=== PATIENT | male | born 1945 | race Caucasian/White ===

== ENCOUNTER 2016-04-06 00:37 | Emergency (ER) | payer MEDICARE ==
--- NOTE | 2016-04-06 00:51 | Emergency Department Record ---
History of Present Illness - General Chief complaint: Throat foreign body Stated complaint: THINKS HE SWALLOWED A COIN Time Seen by Provider: 04/06/16 00:46 Source: Patient, Family Mode of Arrival: Ambulatory Limitations: No limitations - History of Present Illness Initial comments: 70 yo male presents with a concern that he might have swallowed a coin. He had placed his night time pills in his pocket. He reached grabbed them and took them without looking. He thinks he had a single coin in the pocket with the pills. No chocking or gagging. No voice changes. He has a vague sensation in the lower throat/neck area. He has been able to swallow without difficulty. His PCP is Dr Combs, This occurred at midnight. He take 5 pills at night and swallows then all at once. MD complaint: Foreign body Onset/Timin -: Minutes(s) Severity: Mild Consistency: Constant Improves with: None Worsens with: None Context-Epistaxis: Other (as above) Associated Symptoms: Other - Related Data Home Medications Medication Instructions Recorded Confirmed Last Taken Fentanyl [Duragesic] 25 mcg TD Q72H 04/06/16 04/06/16 04/05/16 Hydrocodone/Acetaminophen [[place] 3 tab PO Q8H PRN 04/06/16 04/06/16 04/05/16 5mg/325mg] Nebivolol HCl [Bystolic] 5 mg PO DAILY 04/06/16 04/06/16 04/05/16 [place]-3 Fatty Acids/Fish Oil [Fish 1 each PO DAILY 04/06/16 04/06/16 04/05/16 Oil 1,000 mg Softgel] Omeprazole Magnesium [Prilosec Otc] 20 mg PO DAILY 04/06/16 04/06/16 04/05/16 Tizanidine HCl [Zanaflex] 2 mg PO QHS 04/06/16 04/06/16 04/05/16 Allergies Allergy/AdvReac Type Severity Reaction Status Date / Time No Known Drug Intolerances Allergy Unknown none Verified 04/06/16 00:45 Travel Screening - Travel/Exposure Within Last 30 Days Have you traveled within the last 30 days?: No - Travel/Exposure Within Last Year Have you traveled outside the [place] in the last year?: No - Additonal Travel Details Have you been exposed to anyone with a communicable illness?: No - Travel Symptoms Symptom Screening: None Review of Systems Constitutional: Denies: Chills, Fever, Malaise, Weakness Eyes: Denies: Eye discharge ENT: Denies: Congestion, Throat pain Respiratory: Denies: Cough Cardiovascular: Denies: Chest pain, Palpitations, Syncope Endocrine: Denies: Fatigue Gastrointestinal: Denies: Abdominal pain, Diarrhea, Nausea, Vomiting Genitourinary: Denies: Dysuria, Frequency Musculoskeletal: Denies: Arthralgia, Back pain, Myalgia Skin: Denies: Bruising, Change in color, Rash Neurological: Denies: Headache Psychiatric: Denies: Anxiety Hematological/Lymphatic: Denies: Easy bleeding, Easy bruising, Swollen glands Past Medical History - SOCIAL HISTORY Smoking Status: Former smoker Alcohol Use: None Drug Use: None - RESPIRATORY Hx Respiratory Disorders: Yes Hx COPD: Yes Hx Pneumonia: Yes (20 yrs ago) - CARDIOVASCULAR Hx Cardio Disorders: Yes Hx Cardiac Cath: Yes Hx Hypertension: Yes (meds good control) - NEURO Hx Neuro Disorders: No - GI Hx GI Disorders: Yes Hx Reflux: Yes (omeprazole) - Hx Genitourinary Disorders: No - ENDOCRINE Hx Endocrine Disorders: No - MUSCULOSKELETAL Hx Musculoskeletal Disorders: Yes - PSYCH Hx Psych Problems: No - HEMATOLOGY/ONCOLOGY Hx Hematology/Oncology Disorders: No Family Medical History Any Significant Family History?: No Hx Alcohol Use: Children *Alcohol Comment: daughter Hx Cancer: Father *Cancer Comment: lung Hx HTN: Mother Hx Resp Disorders: Father Physical Exam - General General Appearance: Alert, Oriented x3, Cooperative, No acute distress Limitations: No limitations - Head Head exam: Normal inspection - Eye Eye exam: Normal appearance, PERRL. negative: Conjunctival injection, Periorbital swelling - ENT ENT exam: Normal exam, Mucous membranes moist, Normal external ear exam, Normal orophraynx, TM's normal bilaterally Mouth exam: Normal external inspection, Tongue normal Throat exam: Normal inspection. negative: Tonsillar erythema, Tonsillar exudate - Neck Neck exam: Normal inspection, Full ROM. negative: Tenderness - Respiratory Respiratory exam: Normal lung sounds bilaterally. negative: Respiratory distress - Cardiovascular Cardiovascular Exam: Regular rate, Normal rhythm, Normal heart sounds - GI/Abdominal GI/Abdominal exam: Soft. negative: Tenderness - Rectal Rectal exam: Deferred - exam: Deferred - Extremities Extremities exam: Normal inspection, Full ROM, Normal capillary refill. negative: Tenderness - Back Back exam: Reports: Normal inspection, Full ROM. Denies: Muscle spasm, Rash noted, Tenderness - Neurological Neurological exam: Alert, Oriented X3 - Psychiatric Psychiatric exam: Normal affect, Normal mood - Skin Skin exam: Dry, Intact, Normal color, Warm Course Vital Signs 04/06/16 00:40 Temperature 98.2 F Pulse Rate 63 Respiratory 16 Rate Blood Pressure 147/85 Pulse Ox 94 L - Reevaluation(s) Reevaluation #1: The XR of the neck soft tissues and the AAS were reviewed No visible radio opaque FB seen He is drinking water without any difficulty 04/06/16 01:29 Reevaluation #2: VRAD soft tissue neck negative 04/06/16 01:40 Disposition Disposition: Discharge Clinical Impression: Foreign body sensation in throat Disposition: Home, Self-Care Condition: (1) Good Instructions: Foreign Body Ingestion (ED) Additional Instructions: Return if you have pain, voice changes, choking or any concerns Only swallow one pill at a time in the future Forms: Patient Portal Access Time of Disposition: 01:35
== END 2016-04-06 01:46 | disposition home or self-care (01) ==
LOC: ER 00:37
DX: R09.89 Other specified symptoms and signs involving the circulatory and respiratory systems (principal); R11.11 Vomiting without nausea; J44.9 Chronic obstructive pulmonary disease, unspecified; I10 Essential (primary) hypertension; Z87.891 Personal history of nicotine dependence
CPT/HCPCS: 70360; 74022; 99283; 99284

== ENCOUNTER 2017-02-22 10:18 | Day surgery (SDC) | payer MEDICARE ==
--- NOTE | 2017-02-21 17:21 | History and Physical - [facility] ---
DATE: 02/21/2017 CHIEF COMPLAINT AND HISTORY OF CHIEF COMPLAINT: This patient presents with a history of an intractable lumbar radiculitis. The history is chronic and there has been no trauma. Diagnostics show diffuse spondylosis and disc abnormalities. Due to the failure of therapy, a spinal cord stimulator trial was conducted on 01/30/17 with 75 to 85% pain control. Due to the failure of all therapies and the success of trial, he presents today for implantation of a permanent system. PAST MEDICAL HISTORY: Hypertension. REVIEW OF SYSTEMS: The patient is appropriate and in no acute distress. Remainder of the systems review; glasses. SOCIAL HISTORY: Caffeine. FAMILY HISTORY: Cancer. SURGICAL HISTORY: Arthroscopic knee surgery. ALLERGIES: NONE. MEDICATIONS: To be provided. PHYSICAL EXAMINATION: GENERAL: Height is 6 foot. Weight is 215. VITAL SIGNS: No vital signs available. HEENT: Within normal limits. LUNGS: Clear. HEART: Regular rate and rhythm. ABDOMEN: Nontender. MUSCULOSKELETAL: Examination of the musculoskeletal system shows diffuse tenderness throughout the lumbar spine. Range of motion does produce pain into both legs across the front and back surfaces and would appear to be somewhat more left than right. His motor and sensory field functionality appears to be intact. Mild sensory field deficits bilateral. AMBULATION: No assist device utilized. NEUROLOGIC: Cranial nerves are intact. IMPRESSION: LUMBAR RADICULITIS, ICD-10 CODE = M54.16 AND M54.17. PLAN: The patient is here for implantation of a permanent spinal cord stimulator due to the successful trial and the failure of all other therapies. The potential risks, side-effects, and complications have all been carefully reviewed and discussed including spinal cord injury, nerve root injury, dural puncture, spinal headache, and the failure of the implant. He understands and has consented. The procedure will be considered outpatient. An overnight stay will be evaluated. JOB NUMBER: [id number] cc: Dr. Сергей BRODERICK
[~2017-02-22 10:18] MED LIST: ACETAMINOPHEN 1,000 MG/100 ML BTL IV ONE; CEFAZOLIN 2 Gram 2 GM/50 ML BAG IVPB ONE; FAMOTIDINE 20MG TABLET PO ONE; MECLIZINE 25 MG TABLET PO ONE; METOCLOPRAMIDE 10 MG TABLET PO ONE
[2017-02-22] MEDS ORDERED: LIDOCAINE 1% W/EPI 1:200,000 MPF 30ML SQ ONE (10:19)
[2017-02-22] MEDS ORDERED: BUPIVACAINE 0.75% W/EPI MPF 30ML VIAL IVP ONE (10:19)
[2017-02-22] MEDS ORDERED: FENTANYL PF 100MCG/2ML VIAL IV ONE (10:19)
[2017-02-22] MEDS ORDERED: MIDAZOLAM HCL 2MG/2ML VIAL IV ONE (10:19)
[2017-02-22] MEDS ORDERED: CEFAZOLIN 1G VIAL IM ONE (10:19)
[2017-02-22] MEDS ORDERED: PROPOFOL 10 MG/ML VIAL IV ONE (10:19)
[2017-02-22] MEDS ORDERED: LIDOCAINE 2% MDV (20MG/ML) 20ML VIAL IV ONE (10:19)
[2017-02-22] MEDS ORDERED: HYDROMORPHONE HCL 2 MG/ML VIAL IV ONE (10:19)
--- NOTE | 2017-02-22 16:36 | Operative Note - [facility] ---
DATE OF SURGERY: 02/22/17 PREOPERATIVE DIAGNOSIS: LUMBAR RADICULITIS, ICD-10 CODE = M54.16 AND M54.17. OPERATION: 1. FLUOROSCOPICALLY-GUIDED EPIDURAL ACCESS LEFT T12-L1. PLACEMENT OF SPINAL CORD STIMULATOR LEAD 1, A [employer] 16 WITH 16 ELECTRODES POSITIONED LEFT T7. 2. FLUOROSCOPIC EPIDURAL ACCESS LEFT T11-12, PLACEMENT OF SPINAL CORD STIMULATOR LEAD 2, A [employer] 16 WITH 16 ELECTRODES POSITIONED RIGHT T7. 3. COMPLEX PROGRAMMING LEAD 1 OVER 20 MINUTES FOLLOWED BY COMPLEX PROGRAMMING OF LEAD 2 OVER 20 MINUTES. 4. INCISION, SUBCUTANEOUS DISSECTION, AND ANCHORING OF LEAD 1 AND LEAD 2 TO SUPRASPINOUS FASCIA WITH A [employer] LOCKING ANCHOR. 5. INCISION, SUBCUTANEOUS DISSECTION, AND CREATION OF SUBCUTANEOUS POUCH AT LEFT POSTERIOR/SUPERIOR GLUTEAL MARGIN BELOW BELT LINE FOR PLACEMENT OF GENERATOR IDENTIFIED A [employer] PROGRAMMABLE RECHARGEABLE. 6. TUNNELING BETWEEN POUCHES. PLACEMENT OF EXTERNAL PORTION OF LEAD 1 AND LEAD 2 INTO GENERATOR POUCH EACH LEAD INTERFACED TO GENERATOR. 7. PLACEMENT OF GENERATOR INTO POUCH SECURING TO FASCIA WITH NONABSORBABLE SUTURE. PLACEMENT OF LEADS INTO POUCH. CLOSURE OF INCISIONS VICRYL FOR FASCIA AND RUNNING SUBCUTICULAR VICRYL FOR SKIN. DERMABOND CLOSURE. 8. COMPLEX RECOVERY ROOM PROGRAMMING INTERNAL GENERATOR, HOME USE, TWO STIMULATORS RECOVERY ROOM, 20 MINUTES. SURGEON: NELDA GARCIA D.O. ANESTHESIA: LOCAL SEDATION. ANESTHESIA PROVIDER: BRIANNE TORRES CRNA INDICATION: This patient presents with a history of intractable lumbar radiculitis. Due to the failure of all therapies, a spinal cord stimulator trial was conducted with 75 to 90% pain control. Due to the failure of all therapies and the success of the trial, he presents today for implantation for a permanent stimulator. DESCRIPTION OF PROCEDURE: Intravenous line, vital sign monitoring, IV sedation. Prepped and draped with sterile technique. Under imaging, the epidural interspace left of midline at 12-1 and 11-12 identified, marked, infiltrated with local. At 12-2, using a curved axis Epimed needle with sleeve, the epidural space was accessed. At 11-12, using a similar technique, the epidural space was accessed. At 12-1, spinal cord stimulator, lead 1, a [employer] Infinion 16 with 16 electrodes positioned left at T7. With the access at 11-12, spinal cord stimulator lead 2, a [employer] 16 with 16 electrodes positioned right at T7. With the patient awake and alert, complex programming of the two leads performed, each lead 20 minutes, total 40 minute programming time resulting in complete patterns of stimulation throughout the back and into the legs; patient indicating we are in all of the areas of his pain. He was given the option to implant the system, continue to program, or remove; he opted to implant. He was re-sedated. The skin above and below both needles was infiltrated, incision made, and subcutaneous dissection was conducted to the supraspinous fascia. [place] removed and then each lead was anchored to the fascia with a [place] [employer] [place]. At the left posterior gluteal margin, a site picked by the patient for the generator, skin infiltrated , incision made, and subcutaneous dissection was conducted to form a pouch of suitable size and depth for the generator. Antibiotic irrigation and Bovie for hemostasis. A tunneling tool was used to carry the leads into the generator pouch and then each lead was interfaced to the generator. The generator was placed into the pouch and secured to the posterior fascia with a nonabsorbable suture. The leads were placed into their pouch and then both incisions were closed with Vicryl for fascia and a running subcuticular and Vicryl for skin. A Dermabond closure was then used to approximate the edges each wound. He was transported to the Recovery Room stable, no side-effects from the procedure or the sedation. By his request and his 's request, he will be kept overnight for observation and in the morning discharged. DISCHARGE INSTRUCTIONS: 1. The sites will remain clean and dry. No showering or bathing in any way that would disrupt dressings. If it happens, contact the clinic. 2. Standard medications resumed including Levaquin, the antibiotic, 500 mg once a day for 14 days. 3. His activities will remain low. No bend, left, push, pull until he is seen in the office in 7-10 days. At that point, we will evaluate incisions and give him authorization for further activities. That appointment will be made by the office contacting the patient at home in 3-5 days. All other instructions provided, numbers to contact, and problems given, at that point, he will be discharged in the morning. cc: Dr. Artur Combs JOB NUMBER: [id number] MTDD
--- NOTE | 2017-02-23 10:57 | RADIOLOGY REPORT ---
EXAM: THORACOLUMBAR SPINE, ONE VIEW HISTORY: STATUS POST PAIN STIMULATOR IMPLANT. TECHNIQUE: An AP supine portable view of the spine is obtained including the majority of the thoracic spine and the upper lumbar spine. FINDINGS: This demonstrates two intraspinal stimulator leads in place likely entering the spinal canal at the T12 level with the lead tips near the T6-T7 level. The leads extend inferiorly and leftward and are not entirely imaged. There is normal bone mineralization. No fracture nor destructive bone lesion is seen. Mild multilevel degenerative end plate changes are present. The thoracic pedicles are intact. IMPRESSION: TWO INTRASPINAL STIMULATOR LEADS IN PLACE, DISCUSSED ABOVE. NO ACUTE OSSEOUS ABNORMALITY VISUALIZED. JOB NUMBER: [id number] MTDD
== END 2017-02-22 14:30 | disposition home or self-care (01) ==
LOC: SUR 10:18
PROVIDERS: ATTEND Pain Medicine Interventional Pain Medicine
DX: M54.16 Radiculopathy, lumbar region (principal); M54.17 Radiculopathy, lumbosacral region; I10 Essential (primary) hypertension; J44.9 Chronic obstructive pulmonary disease, unspecified; E66.9 Obesity, unspecified
CPT/HCPCS: 63685; 63650 ×2; 00300; 95972; 72020; J3010; J1170; J0690; J3490; C1820; C1883